=== PATIENT | female | born 1990 | race African-American/Black ===

== ENCOUNTER 2018-05-20 02:56 | Emergency (ER) | payer OTHER, SELFPAY ==
[2018-05-20 03:24] LABS: #Lymphocytes 1.3 thou/uL (1.20-3.40); #Monocytes 0.2 thou/uL (0.11-0.59); #Neutrophils 2.9 thou/uL (1.40-6.50); %Basophils 1.1 % (0.0-1.0); %Eosinophils 0.2 % (0.0-10.0); %Lymphocytes 28.3 % (21.0-51.0); %Monocytes 4.8 % (0.0-10.0); %Neutrophils 65.6 % (42.0-75.0); Hemoglobin 9.1 g/dL (12.0-16.0); Mean Corpuscular HGB CONC 33.5 g/dL (32.0-36.0); Mean Corpuscular Hemoglobin 26.5 pg (27.0-31.0); Mean Platelet Volume 8.8 fL (7.4-10.4); Platelet Count 332 thou/uL (130-400); RBC Distribution Width 20.8 % (11.5-14.5); Red Blood Cell (RBC) Count 3.43 mill/uL (4.20-5.40); White Blood Cell (WBC) Count 4.5 thou/uL (4.8-10.8)
[2018-05-20 03:25] LABS: BHCG - Serum Negative (NEGATIVE); Pregs Control Background? CLEAR/WHITE (CLR/WHITE); Pregs Control Bar Appear? YES (CONTROL BAR)
[2018-05-20 03:27] LABS: INR-International Normal Ratio 1.1; PTT 26.4 SEC (22.9-36.1)
[2018-05-20] MEDS ORDERED: Lidocaine 1% w/Epinephrine 1:100K 20 ML VIAL ONE (03:29)
[2018-05-20 03:33] LABS: ALT (SGPT) Less than 7 U/L (8-55); AST (SGOT) 17 U/L (5-34); Alcohol 162 mg/dL (Less than 10); Alkaline Phosphatase 66 U/L (40-150); Anion Gap 13 mmol/L (10-20); BUN (Urea Nitrogen) 7 mg/dL (7.0-18.7); Bilirubin, Total 0.3 mg/dL (0.2-1.2); Calc. Creatinine Clearance 0 mL/min (70-130); Calcium 8.9 mg/dL (7.8-10.44); Carbon Dioxide 22 mmol/L (22-29); Chloride 106 mmol/L (98-107); Estimated GFR-MDRD 79; Globulin 4.3 g/dL (2.4-3.5); Glucose 93 mg/dL (70-105); Potassium 3.8 mmol/L (3.5-5.1); Protein, Total 8.3 g/dL (6.0-8.3); Sodium 137 mmol/L (136-145)
[2018-05-20] MEDS ORDERED: Adacel (T-DAP) 0.5 ML VIAL ONE (03:36)
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
== END 2018-05-20 06:21 | disposition home or self-care (01) ==
LOC: ERS 02:56
DX: S61.511A Laceration without foreign body of right wrist, initial encounter (principal); S05.11XA Contusion of eyeball and orbital tissues, right eye, initial encounter; F10.129 Alcohol abuse with intoxication, unspecified; Y00.XXXA Assault by blunt object, initial encounter
CPT/HCPCS: 12002; 70450; 70486; 71045; 72125; 80053; 80307; 84703; 85025; 85610; 85730; 90715; 94760; G0390; J2001